=== PATIENT | male | born 1960 | race Caucasian/White ===

== ENCOUNTER 2016-06-02 08:03 | Outpatient (CLI) | payer OTHER ==
--- NOTE | 2016-06-02 09:33 | DIAGNOSTIC IMAGING REPORT ---
PROCEDURE: CT THORAX WITH CONTRAST INDICATION: Follow-up upper lobe nodule. TECHNIQUE: 125 ml of Isovue 300 was injected intravenously and axial images were obtained of the chest with coronal and sagittal reformations. COMPARISON: Outside chest x-ray 05/29/2016. FINDINGS: Normal lung parenchyma without pulmonary nodules or infiltrates. No adenopathy or effusion. Normal thoracic aorta without dissection or aneurysm. Coronary calcific atherosclerosis. Normal heart size. Left renal cyst. Moderate degenerative changes of the spine. IMPRESSION: 1. No evidence of pulmonary nodules 2. Coronary calcific atherosclerosis
== END 2016-06-02 23:00 ==
LOC: CT SRH 08:03
DX: R19.01 Right upper quadrant abdominal swelling, mass and lump (principal); I25.10 Atherosclerotic heart disease of native coronary artery without angina pectoris